=== PATIENT | male | born 1950 | race Caucasian/White ===

== ENCOUNTER 2019-12-12 14:49 | Emergency (ER) | payer OTHER, BC ==
--- NOTE | 2019-12-12 14:58 | PDOC ---
History of Present Illness - General Chief Complaint: Laceration Stated Complaint: LACERATION TO RT PINKY AT WORK Time Seen by Provider: 12/12/19 14:57 - History of Present Illness Initial Comments: HPI: 69yo right-handed M with no reported PMH presenting with laceration to right fourth digit. Around 2:30pm, patient was cutting some wood with an electric saw when he looked away for a moment and inadvertently cut his finger. Endorsing 10/ 10 pain. Does not know when his last tetanus shot was. Last meal was around 2: 20pm. Has never injured this hand before. Denies allergies. Patient is a retired musician. No fevers, chills, chest pain, or shortness of breath. ROS: Constitutional: no fever, no chills HEENT: no throat pain, no dysphagia Cardiovascular: no chest pain, no palpitations Respiratory: no cough, no shortness of breath Gastrointestinal: no abdominal pain, no nausea Genitourinary: no dysuria, no hematuria Musculoskeletal: no myalgia, no arthralgia Skin: no rash, no itching Neurologic: no headache, no weakness PE: General: Awake, alert, and fully oriented, in no acute distress Head: No signs of trauma Eyes: EOMI, sclera anicteric ENT: Moist mucus membranes Neck: Normal ROM, supple Lungs: Lungs clear, Normal breath sounds Cardio: Regular rhythm, S1 and S2 present Abdomen: Soft, nontender. No guarding, no rebound, no masses Extremities: Normal range of motion, Distal pulses present Right hand: deep laceration on dorsal aspect of hand just proximal to fourth digit PIP joint, patient unable to extend finger consistent with extensor tendon injury; hemostatic; strong radial pulse SKIN: Warm, Dry, normal turgor Neurologic: Cranial nerves II through XII grossly intact. Normal speech ED Course/MDM: DDX including but not limited to laceration, extensor tendon injury, bone injury Presentation consistent with Right 4th finger extensor tendon injury Xray Pre-op labs Morphine Ancef Boostrix 12/12/19 14:58 Dr Camacho spoke with Dr. Mukherjee, hand specialist, who will come evaluate the patient 12/12/19 15:09 Radiograph showing bone involvement from power saw with fracture in PIP, my impression Injured finger wrapped in saline soak 12/12/19 15:46 CBC WBC 7.8 K/mm3 (4.0-10.8) 12/12/19 15:05 RBC 5.05 M/mm3 (4.00-5.60) 12/12/19 15:05 Hgb 15.7 GM/dl (11.7-16.9) 12/12/19 15:05 Hct 46.6 % (35.4-49) 12/12/19 15:05 MCV 92.2 fl (80-96) 12/12/19 15:05 MCH 31.1 pg (25.7-33.7) 12/12/19 15:05 MCHC 33.7 g/dl (32.0-35.9) 12/12/19 15:05 RDW 13.6 % (11.9-15.9) 12/12/19 15:05 Plt Count 135 K/MM3 (134-434) 12/12/19 15:05 MPV 13.1 fl (7.5-11.1) H 12/12/19 15:05 Absolute Neuts (auto) 4.7 K/mm3 12/12/19 15:05 Neutrophils % 60.6 % (42.8-82.8) 12/12/19 15:05 Lymphocytes % 26.6 % (8-40) 12/12/19 15:05 Monocytes % 11.1 % (3.8-10.2) H 12/12/19 15:05 Eosinophils % 1.1 % (0-4.5) 12/12/19 15:05 Basophils % 0.6 % (0-2.0) 12/12/19 15:05 Platelet Estimate Slt decrease 12/12/19 15:05 Platelet Comment Few large platelets 12/12/19 15:05 No leukocytosis CMP Sodium 136 mmol/L (136-145) 12/12/19 15:05 Potassium 3.7 mmol/L (3.5-5.1) 12/12/19 15:05 Chloride 104 mmol/L (98-107) 12/12/19 15:05 Carbon Dioxide 27 mmol/L (21-32) 12/12/19 15:05 Anion Gap 5 MMOL/L (8-16) L 12/12/19 15:05 BUN 27.0 mg/dl (7-18) H 12/12/19 15:05 Creatinine 0.9 mg/dl (0.55-1.3) 12/12/19 15:05 Est GFR (CKD-EPI)AfAm 100.65 12/12/19 15:05 Est GFR (CKD-EPI)NonAf 86.84 12/12/19 15:05 Random Glucose 143 mg/dl (74-106) H 12/12/19 15:05 Calcium 9.0 mg/dl (8.5-10) 12/12/19 15:05 Total Bilirubin 1.0 mg/dl (0.2-1) 12/12/19 15:05 AST 29 U/L (15-37) 12/12/19 15:05 ALT 23 U/L (13-61) 12/12/19 15:05 Alkaline Phosphatase 59 U/L (45-117) 12/12/19 15:05 Total Protein 6.6 g/dl (6.4-8.2) 12/12/19 15:05 Albumin 4.0 g/dl (3.4-5.0) 12/12/19 15:05 Electrolytes unremarkable Cr normal No transaminitis Pending evaluation by Dr. Mukherjee 12/12/19 17:20 Extensor tendon and laceration repaired by Dr. Mukherjee. Wound dressed. Patient to follow up with Dr. Jackson Mukherjee stated he would contact Dr. Paz regarding this patient Patient given referral information; to call and make an appointment as soon as possible Keflex sent to pharmacy Arm placed in sling to keep the hand elevated Instructed patient to look out for signs of infection Return precautions Stable for discharge Past History - Past Medical History Allergies/Adverse Reactions: Allergies Allergy/AdvReac Type Severity Reaction Status Date / Time No Known Allergies Allergy Verified 12/12/19 14:50 Home Medications: Ambulatory Orders Cephalexin [Keflex] 500 mg PO BID #20 capsule 12/12/19 COPD: No Other medical history: PT DENIES - Psycho Social/Smoking Cessation Hx Smoking History: Never smoked Hx Alcohol Use: No Drug/Substance Use Hx: No *Physical Exam - Vital Signs Last Vital Signs Temp Pulse Resp BP Pulse Ox 98.2 F 83 18 118/113 H 98 12/12/19 14:50 12/12/19 14:50 12/12/19 14:50 12/12/19 14:50 12/12/19 14:50 ED Treatment Course - LABORATORY CBC & Chemistry Diagram: 12/12/19 15:05 12/12/19 15:05 Discharge - Discharge Information Problems reviewed: Yes Clinical Impression/Diagnosis: Open fracture Finger laceration involving tendon Qualifiers: Encounter type: initial encounter Qualified Code(s): S61.219A - Laceration without foreign body of unspecified finger without damage to nail, initial encounter Condition: Improved Disposition: HOME - Additional Discharge Information Prescriptions: Cephalexin [Keflex] 500 mg PO BID #20 capsule - Follow up/Referral Referrals: Vince Paz MD [Staff Physician] - [facility] [place] [facility] [Provider Group] - Patient Discharge Instructions Patient Printed Discharge Instructions: How to Care for a Surgical Wound- Stitches Additional Instructions: You came to the emergency department because of a finger injury. The hand specialist evaluated you and repaired your injury. We gave you antibiotics and a shot called Boostrix, also called TDAP, to cover you for tetanus. Keep note of this date 12/12/2019. Prescription sent to your pharmacy. Take as instructed. Keep your right hand elevated as much as possible. We have referred you to a hand specialist. You must follow up with this physician as soon as possible. Call and make an appointment. Your workup is not complete until you do so. Mild oozing of bleeding can be expected. Immediate medical attention is required if experience: profuse bleeding, redness or hardness around the wound, bleeding, pain or tenderness, a red streak, yellow or green discharge oozing from the wound, fever or chills. If you think there is an emergency, call for emergency medical services or present to the emergency department right away your blood pressure is elevated today. you should have a repeat blood pressure checked in 3 days. with you primary doctor. if you do not have one you should follow up wt the [facility] group see referral information. - Post Discharge Activity
[2019-12-12] MEDS ORDERED: DIPHTH,PERTUSS(ACELL),TET 0.5 ML DISP.SYRIN IM ONE ×2 (15:03→15:09)
[2019-12-12] MEDS ORDERED: CEFAZOLIN 1 GM in DEXTROSE 5%-WATER - 50 ML IVPB ONE (15:03)
[2019-12-12 15:05] VITALS: TEMP 98.2; BMI 23.7
[2019-12-12] MEDS ORDERED: morphine CARPU-JECT 4 MG/1 ML DISP.SYRIN IVPUSH ONE (15:05)
[2019-12-12] MEDS ORDERED: ceFAZolin SODIUM 1 GM VIAL ONE (15:08)
[2019-12-12] MEDS ORDERED: morphine SULFATE 4 MG/ML VIAL ONE (15:08)
[2019-12-12 15:34] LABS: BASO % 0.6 % (0-2.0); EOS % 1.1 % (0-4.5); HEMATOCRIT 46.6 % (35.4-49); HEMOGLOBIN 15.7 GM/dl (11.7-16.9); LYMPH % 26.6 % (8-40); MCH 31.1 pg (25.7-33.7); MCHC 33.7 g/dl (32.0-35.9); MEAN CELL VOLUME 92.2 fl (80-96); MEAN PLT VOLUME 13.1 fl (7.5-11.1); MONO % 11.1 % (3.8-10.2); NEUT % 60.6 % (42.8-82.8); PLATELET COUNT 135 K/MM3 (134-434); RBC 5.05 M/mm3 (4.00-5.60); RDW 13.6 % (11.9-15.9); WHITE BLOOD COUNT 7.8 K/mm3 (4.0-10.8)
[2019-12-12 15:41] LABS: CREATININE 0.9 mg/dl (0.55-1.3); POTASSIUM 3.7 mmol/L (3.5-5.1); TOT PROT 6.6 g/dl (6.4-8.2)
[2019-12-12 15:43] LABS: ADD RBC MORPHOLOGY YES
[2019-12-12 15:44] LABS: INR 1.16 (0.82-1.09); PROTHROMBIN TIME (PATIENT) 12.9 SEC (10.2-13.0)
--- NOTE | 2019-12-12 15:52 | PDOC ---
Attending Attestation - Resident Resident Name: Peg Espinal - ED Attending Attestation I have performed the following: I have examined & evaluated the patient, The case was reviewed & discussed with the resident, I agree w/resident's findings & plan, Exceptions are as noted - HPI HPI: 12/12/19 15:47 69 yo male no pmhx here s/p hand injury to left ring finger. pt was using a power saw, looked away and accidently cut his finger over the pip joint. bleeding controlled with pressure. happened just prior to arrival. pt is right handed, a retired musician. last tetanus unknown. no new numbness. is unabel to bend finger. - Physicial Exam PE: 12/12/19 15:51 awake alert lungs clear bilat heart rrr no mrg right hand ring finger with laceration over PIP. extension tendon involvement. distally n/v intact. visible bone in defect. 2 + radial/ ulnar pulses. - Medical Decision Making 12/12/19 15:52 69 yo male with open fracture. laceration with tendon involvement. plan iv abx, d/w hand surgeon Reynold orellana. xray with fracture through distal Phalynx. given iv hydration, iv ancefl. awaiting hand surgeon.
[2019-12-12 16:42] VITALS: PULSE 63
[2019-12-12 16:48] LABS: PLATELET ESTIMATE SLT DECREASE
[2019-12-12] MEDS ORDERED: LIDOCAINE HCL 2% (20ML MULTI-DOSE VIAL) ONE (17:54)
[2019-12-12 19:18] VITALS: BP 170/109
--- NOTE | 2019-12-15 20:50 | OP ---
DATE OF OPERATION: DATE OF DICTATION: 12/15/2019 TITLE OF PROCEDURE: 1. Right ring finger open reduction and splint stabilization of proximal phalanx open fracture. 2. Repair of extensor mechanism to the right ring finger. REQUESTING PHYSICIAN: The patient is seen at the request of referring physician, . HISTORY: This is a 69-year-old male who suffered a saw injury to the dorsum of the right ring finger. He is right hand dominant. He is brought into the [facility] emergency room for treatment. PAST MEDICAL AND SURGICAL HISTORY: Noncontributory. REVIEW OF SYSTEMS: Negative for bleeding, coagulopathy, recent fevers or infections, any change in mental status or history of shortness of breath. PHYSICAL EXAMINATION: Head/Neck: Atraumatic. Extremities: Warm and well perfused. There is normal distal perfusion sensation to the injured right ring finger. There is a clear extensor lag at the level of the PIP joint. Patient has a large laceration with current involvement of the extensor mechanism. X-ray shows distal shaft fracture of the proximal phalanx. The patient is counseled on risks, benefits, and alternatives to washout, repair of extensor mechanism, splinting of fracture, and repair of skin. He understands, agrees to proceed. DESCRIPTION OF PROCEDURE: Patient is given a 3 mL, 2% lidocaine digital block, after which the wound is copiously irrigated with normal saline. A tourniquet is applied which was removed at the end of the procedure. The extensor mechanism is repaired with a series of interrupted [id number] 4-0 nylon suture. The fracture is carefully aligned, and the skin is then repaired after the extensions as well as the mid laceration are repaired. The repair is done with a series of interrupted 4-0 nylon suture. A dressing of bacitracin, Xeroform, Alejandro. A flexion based splint is placed with the patient with finger in full extension. He is dressed with Alejandro and an Andrea wrap. Sling for elevation. Started on Keflex. Patient is to follow up with Dr. Vince Paz. I have discussed the case with Dr. Vince Paz for further management of his fracture. CLINTON STATON M.D. [id number]
== END 2019-12-12 19:16 | disposition home or self-care (01) ==
LOC: FER 14:49
PROC: 3E03329 Introduction of Other Anti-infective into Peripheral Vein, Percutaneous Approach (ICD-10-PCS; principal; 2019-12-12)
PROC: 3E0234Z Introduction of Serum, Toxoid and Vaccine into Muscle, Percutaneous Approach (ICD-10-PCS; 2019-12-12)
DX: S61.214A Laceration without foreign body of right ring finger without damage to nail, initial encounter (principal); W29.8XXA Contact with other powered hand tools and household machinery, initial encounter; Y93.89 Activity, other specified; Y92.89 Other specified places as the place of occurrence of the external cause; Y99.0 Civilian activity done for income or pay
CPT/HCPCS: 36415; 73130-TC-RT-FY; 80053; 85025; 85610; 85730; 86850; 86900; 86901; 90471; 90715; 96365; 99284-25